=== PATIENT | male | born 1960 | race Caucasian/White ===

== ENCOUNTER 2017-07-19 13:26 | Emergency (ER) | payer OTHER ==
[2017-07-19] MEDS ORDERED: LIDOCAINE 1% INJ-PF (10 MG/ML) 30 ML SDV INJ ONE (13:44)
--- NOTE | 2017-07-19 13:45 | ER Document Report ---
ED Extremity Problem, Lower - General Mode of Arrival: Ambulatory Information source: Patient TRAVEL OUTSIDE OF THE [place] IN LAST 30 DAYS: No <ALEM MEZA - Last Filed: 07/19/17 16:19> <CHENCHO BARRETT - Last Filed: 07/19/17 16:46> - General Chief Complaint: Leg Swelling Stated Complaint: SWOLLEN RT LEG Time Seen by Provider: 07/19/17 13:34 Notes: Patient is a 57 year old male that presents to the emergency department today with complaints of right knee pain. Patient states she has had pain in his right knee for approximately 2 or 3 days. Patient states there is a "lump" with "a sore" on his right knee. Patient was seen by his PCP yesterday who sent him to get an xray but did not do anything further. (ALEM MEZA) - Related Data Allergies/Adverse Reactions: No Known Allergies Allergy (Unverified 04/14/13 23:33) Past Medical History - General Information source: Patient - Social History Smoking Status: Never Smoker Cigarette use (# per day): No Chew tobacco use (# tins/day): No Frequency of alcohol use: Occasional Drug Abuse: None Lives with: Family Family History: Arthritis, CAD, CVA, DM, Hyperlipidemia, Hypertension, Malignancy Musculoskeltal Medical History: Reports Hx Arthritis, Reports Hx Musculoskeletal Trauma Skin Medical History: Reports Hx MRSA - MRSA 08/09 BUTTOCKS 12/09 SCROTUM Traumatic Medical History: Reports: Hx Fractures - multiple toes left leg collar bone Past Surgical History: Reports: Hx Cholecystectomy - Immunizations Immunizations up to date: Yes Hx Diphtheria, Pertussis, Tetanus Vaccination: Yes <ALEM MEZA - Last Filed: 07/19/17 16:19> Review of Systems - Review of Systems Constitutional: No symptoms reported EENT: No symptoms reported Cardiovascular: No symptoms reported Respiratory: No symptoms reported Gastrointestinal: No symptoms reported Genitourinary: No symptoms reported Male Genitourinary: No symptoms reported Musculoskeletal: See HPI, Joint pain - right knee pain Skin: See HPI, Lesions - right knee Hematologic/Lymphatic: No symptoms reported Neurological/Psychological: No symptoms reported -: Yes All other systems reviewed and negative <ALEM MEZA - Last Filed: 07/19/17 16:19> Physical Exam <ALEM MEZA - Last Filed: 07/19/17 16:19> - Extremities General lower extremity: Other - The right leg is somewhat swollen and some erythema. Just below the patella on the right there is a large firm bulging area with erythema and some skin peeling and crusting. This is consistent with an abscess. There is no tenderness to palpate the knee itself, and there is no effusion. <CHENCHO BARRETT - Last Filed: 07/19/17 16:46> - Vital signs Vitals: Temp Pulse Resp BP Pulse Ox 98.8 F 76 18 106/57 L 95 07/19/17 13:37 07/19/17 13:37 07/19/17 13:37 07/19/17 13:37 07/19/17 13:37 - Notes Notes: Physical Exam: General: Alert, appears uncomfortable. HEENT: Normocephalic. Atraumatic. PERRL. Extraocular movements intact. Oropharynx clear. Neck: Supple. Non-tender. Respiratory: No respiratory distress. Clear and equal breath sounds bilaterally. Cardiovascular: Regular rate and rhythm. Abdominal: Normal Inspection. Non-tender. No distension. Normal Bowel Sounds. Back: Non-tender. No deformity or step off. Extremities: Upper extremities: Normal inspection. Normal ROM. Lower extremities: see knee exam Neurological: Normal cognition. AAOx4. Normal speech. Psychological: Normal affect. Normal Mood. Skin: Warm. Dry. Normal color. (ALEM MEZA) Course <ALEM MEZA - Last Filed: 07/19/17 16:19> <CHENCHO BARRETT - Last Filed: 07/19/17 16:46> - Re-evaluation Re-evalutation: 07/19/17 16:43 PROCEEDURE: The right anterior infrapatellar region was cleaned with Hibiclens. The abscess area was anesthetized with 5 mL's of 1% lidocaine. A transverse incision was made with a #11 blade. The wound was spread with a mosquito clamp. At least 7-8 mL's of yellow pus came out of the abscess cavity. The pus was cultured and sent to the lab. The abscess cavity was copiously irrigated with 30 mL's of normal saline. The abscess cavity was then packed with quarter-inch iodoform gauze. A sterile absorbent gauze dressing was applied to the wound. (CHENCHO BARRETT) - Vital Signs Vital signs: Temp Pulse Resp BP Pulse Ox 98.7 F 71 17 105/61 93 07/19/17 16:04 07/19/17 16:04 07/19/17 16:04 07/19/17 16:04 07/19/17 16:04 Discharge <ALEM MEZA - Last Filed: 07/19/17 16:19> <CHENCHO BARRETT - Last Filed: 07/19/17 16:46> - Discharge Clinical Impression: Infrapatellar abscess, Incision and drainage of abscess Condition: Stable Disposition: HOME, SELF-CARE Additional Instructions: Add the cephalexin as prescribed. Increase your Bactrim to 2 pills twice daily. Elevate your foot above your heart all the time. Follow-up with [facility] tomorrow--call for an appointment. Prescriptions: Cephalexin Monohydrate [Keflex 500 mg Capsule] 500 mg PO QID #28 capsule Oxycodone HCl/Acetaminophen [Percocet 5-325 mg Tablet] 1 - 2 tab PO ASDIR PRN # 15 tablet PRN Reason: Forms: Return to Work Referrals: [facility] [Provider Group] - Follow up tomorrow Scribe Attestation: 07/19/17 15:33 I personally performed the services described in the documentation, reviewed and edited the documentation which was dictated to the scribe in my presence, and it accurately records my words and actions. (CHENCHO BARRETT) Scribe Documentation - Scribe Written by Juice:: Juice Casper, 07/19/2017 1400 acting as scribe for :: Esperanza <ALEM MEZA - Last Filed: 07/19/17 16:19>
[2017-07-19] MEDS ORDERED: SULFAMETHOXAZOLE/TRIMETHOPRIM 800-160 MG TABLET PO ONE (14:59)
[2017-07-19] MEDS ORDERED: CEPHALEXIN 500 MG CAPSULE PO ONE (14:59)
[2017-07-19] MEDS ORDERED: OXYCODONE-ACETAMINOPHEN 5-325 MG TABLET PO ONE (15:00)
[2017-07-19 16:27] VITALS: BP 105/61
== END 2017-07-19 16:15 | disposition home or self-care (01) ==
LOC: ER 13:26
PROC: 0H9KXZZ Drainage of Right Lower Leg Skin, External Approach (ICD-10-PCS; principal; 2017-07-19)
DX: L02.415 Cutaneous abscess of right lower limb (principal); M79.89 Other specified soft tissue disorders; M25.561 Pain in right knee
CPT/HCPCS: 99283; 87070; 87075; 87077; 87186; 10061; J3490; 87205; A6266

== ENCOUNTER 2017-07-20 11:32 | Inpatient (IN) | payer OTHER ==
--- NOTE | 2017-07-20 11:41 | PDOC H&P ---
History of Present Illness Admission Date/PCP: 07/20/17 11:32 SHAWNEE TRUJILLO MD History of Present Illness: TALIA MASSEY is a 57 year old male who presented to the office with complaints of right lower extremity pain. He reports a spontaneous onset of right lower extremity swelling erythema and tenderness. He was evaluated in the emergency room yesterday. He underwent I&D of the knee. He was started on oral antibiotics. He returns to the office today with progressive symptoms. The patient reports a past medical history of 2 specific MRSA infection is treated in the past. Past Medical History Cardiac Medical History: Reports: None Pulmonary Medical History: Reports: None Musculoskeltal Medical History: Reports: Arthritis Past Surgical History Past Surgical History: Reports: Cholecystectomy Social History Information Source: Patient, [facility] Records Smoking Status: Smoker,Current Status Unk Family History Family History: Arthritis, CAD, CVA, DM, Hyperlipidemia, Hypertension, Malignancy Parental Family History Reviewed: No Children Family History Reviewed: No Sibling(s) Family History Reviewed.: No Medication/Allergy Home Medications: Clonazepam [Klonopin 2 mg Tablet] 2 mg PO 04/14/13 Dextroamphetamine/Amphetamine [Adderall XR 20 mg Capsule] 3 cap.sr PO DAILY Donepezil HCl [Aricept] 10 mg PO 04/14/13 Escitalopram Oxalate [Lexapro] 40 mg PO 04/14/13 Fenofibrate [Lofibra] 160 mg PO 04/14/13 Lamotrigine 400 mg PO 04/14/13 Modafinil 200 mg PO 04/14/13 Trazodone HCl [Desyrel] 300 mg PO 04/14/13 Zolpidem Tartrate 10 mg PO 04/14/13 Cephalexin Monohydrate [Keflex 500 mg Capsule] 500 mg PO QID #28 capsule Oxycodone HCl/Acetaminophen [Percocet 5-325 mg Tablet] 1 - 2 tab PO ASDIR PRN # 15 tablet 07/19/17 Allergies/Adverse Reactions: No Known Allergies Allergy (Unverified 04/14/13 23:33) Review of Systems All systems: as per [facility] Physical Exam Physical Exam: The patient is a relatively thin middle-aged white male who arrives at the office in a wheelchair. He is accompanied by her friend. The right lower extremity is wrapped in a Coban dressing. This is removed. There is a small transverse incision overlying the tibial tubercle. This is filled with packing. The packing is removed. There is no significant amount of exudate present. There is a surrounding erythema and tenderness to palpation. The swelling erythema and tenderness extending down the calf to the distal third. Passive range of motion of the knee is without significant discomfort. There is no inguinal adenopathy. General appearance: PRESENT: mild distress Head exam: PRESENT: normocephalic Eye exam: PRESENT: EOMI Respiratory exam: PRESENT: unlabored Cardiovascular exam: PRESENT: RRR Pulses: PRESENT: +1 pedal pulses bilateral Vascular exam: PRESENT: normal capillary refill GI/Abdominal exam: PRESENT: soft Rectal exam: PRESENT: deferred Extremities exam: PRESENT: other - Exam is as above. Neurological exam: PRESENT: alert, awake, oriented to person, oriented to place , oriented to time, oriented to situation, other - Patient's factual recall of details is not accurate. The patient reports that he had the I&D done in Dr. Barrios's office. In fact it was done in the emergency room at [place].. ABSENT: motor sensory deficit Psychiatric exam: PRESENT: appropriate affect, normal mood. ABSENT: homicidal ideation, suicidal ideation Skin exam: PRESENT: dry, intact, warm. ABSENT: cyanosis, rash Results Status: Imported from PACS Assessment & Plan - Diagnosis (1) Cellulitis of right lower extremity Is this a current diagnosis for this admission?: Yes Plan: 57-year-old white male with past medical history significant for MRSA infections now with a right lower extremity infection that began spontaneously without any penetrating trauma. The patient is undergone a limited I&D in the emergency room and this appears to have decompressed what was probably an abscess. The microbiology evaluation of that exudates is still pending. However the patient was sent out on Keflex as an oral antibiotic and his symptoms have progressed since that time suggesting that this was not adequate coverage. In light of the past medical history with MRSA infections and the current progressive symptoms on oral first generation cephalosporin, I think that the patient probably should be admitted for IV antibiotic therapy and probably should have an MRI scan to exclude the possibility of a pyarthrosis. - Time Time Spent: 50 to 70 Minutes Anticipated discharge: Home with Homehealth Within: Other
[2017-07-20] MEDS ORDERED: ACETAMINOPHEN 325 MG TABLET PO PRN (12:22)
[2017-07-20] MEDS ORDERED: ONDANSETRON 4 MG TAB.RAPDIS SL PRN (12:22)
[2017-07-20] MEDS ORDERED: RINGERS SOLUTION,LACTATED 1,000 ML IV PRN (12:23)
[2017-07-20] MEDS ORDERED: RIFAMPIN 300 MG CAPSULE PO ONE (13:00)
[2017-07-20 13:42] LABS: ABSOLUTE EOSINOPHILS # (AUTO) 0.1 10^3/uL (0.0-0.6); ABSOLUTE LYMPHOCYTES (AUTO) 1.7 10^3/uL (0.5-4.7); ABSOLUTE MONOCYTES (AUTO) 0.5 10^3/uL (0.1-1.4); ABSOLUTE NEUT (AUTO) 7.2 10^3/uL (1.7-8.2); BASOPHILS % (AUTO) 0.3 % (0-2); EOSINOPHILS % (AUTO) 1.4 % (0-6); HEMATOCRIT 36.2 % (37.9-51.0); HEMOGLOBIN 12.9 g/dL (13.5-17.0); HGB HCT DIFFERENCE 2.5; MEAN CORPUSCULAR HEMOGLOBIN 33.8 pg (27.0-33.4); MEAN CORPUSCULAR HGB CONC 35.7 g/dL (32.0-36.0); MEAN CORPUSCULAR VOLUME 95 fl (80-97); MONOCYTES % (AUTO) 5.6 % (3-13); RED BLOOD COUNT 3.83 10^6/uL (4.35-5.55); RED CELL DISTRIBUTION WIDTH 13.3 % (11.5-14.0); SEGMENTED NEUTROPHILS % (AUTO) 74.7 % (42-78); WHITE BLOOD COUNT 9.6 10^3/uL (4.0-10.5)
[2017-07-20 14:06] LABS: ANION GAP 14 (5-19); BLOOD UREA NITROGEN 12 mg/dL (7-20); CALCIUM 9.1 mg/dL (8.4-10.2); CARBON DIOXIDE 26 mmol/L (22-30); CHLORIDE 102 mmol/L (98-107); CREATININE RESULT 0.84 mg/dL (0.52-1.25); GLUCOSE 106 mg/dL (75-110); POTASSIUM 4.2 mmol/L (3.6-5.0); SODIUM 141.6 mmol/L (137-145)
[2017-07-20 14:24] LABS: ERYTHROCYTE SEDIMENTATION RATE 95 mm/hr (0-20)
[2017-07-20 14:31] LABS: C-REACTIVE PROTEIN 189.3 mg/L (<10.0)
[2017-07-20] MEDS ORDERED: VANCOMYCIN HCL 1,000 MG in DEXTROSE 5%-WATER 250 ML IV SCH (15:00)
--- NOTE | 2017-07-20 15:36 | RADIOLOGY REPORT (SQ) ---
EXAM DESCRIPTION: MRI RT LOWER EXTREMITY WITHOUT COMPLETED DATE/TIME: 07/20/2017 3:14 pm REASON FOR STUDY: RLE CELLULITIS COMPARISON: None. TECHNIQUE: Rightknee images acquired and stored on PACS. Multiplanar images include fat sensitive s equences as T1, water sensitive sequences as FST2 or STIR, cartilage sensitive sequences as FSPD, and gradient echo sequences. LIMITATIONS: None. FINDINGS: There is diffuse superficial cellulitis in the distal thigh, knee soft tissues, and upper calf. Skin thickening and subcutaneous edema is present. In the pretibial soft tissues, a fluid collection with air bubbles is present worrisome for abscess, 3.5 cm transverse by 0.7 cm AP x 2.5 cm craniocaudad. This is best shown on axial image 17-22, and s agittal image 16. There is fluid between the patellar tendon and Hoffa's fat pad, 2.7 cm transverse by 0.7 cm AP x 2.6 cm craniocaudad. There is abnormal edema in the anterior superior edge of the tibialis anterior muscle on axial images 20-24, worrisome for myositis. No suprapatellar knee joint effusion is seen. BONE CORTEX AND MARROW: No alteration of signal to suggest marrow replacement. No worrisome bone lesi ons. No occult fracture. ACL: Intact. No degeneration or ganglion cyst. PCL: Intact. MCL: Intact. No periligamentous edema or fluid. LCL: Intact. No periligamentous edema or fluid. MEDIAL MENISCUS: No tears. No abnormal signal. LATERAL MENISCUS: No tears. No abnormal signal. MEDIAL COMPARTMENT: Cartilage preserved. No bone bruises or reactive marrow edema. No osteophytes. LATERAL COMPARTMENT: Cartilage preserved. No bone bruises or reactive marrow edema. No osteophytes. PATELLA: No chondromalacia. No subchondral cysts. Medial and lateral retinacula intact. EXTENSOR MECHANISM: Intact. Quadriceps and patella tendons normal. SOFT TISSUES: As above OTHER: No other significant finding. IMPRESSION: Cellulitis with skin thickening and subcutaneous edema. Abscess pretibial soft tissues with air bubbles present Fluid tracking between the dorsal aspect of the patellar tendon Hoffa's fat pad worrisome for infecti on. TECHNICAL DOCUMENTATION: JOB ID: [id number]- All Rights Reserved
[2017-07-20] MEDS: OXYCODONE HCL IR 5 MG TABLET PO PRN ×2 (15:48→23:11)
[2017-07-20] MEDS: VANCOMYCIN HCL 1,000 MG in DEXTROSE 5%-WATER 250 ML IV SCH (17:17)
[2017-07-20] MEDS: RIFAMPIN 300 MG CAPSULE PO SCH (23:10)
[2017-07-20] MEDS: RIVAROXABAN 10 MG TABLET PO SCH (23:11)
[2017-07-21] MEDS: VANCOMYCIN HCL 1,000 MG in DEXTROSE 5%-WATER 250 ML IV SCH ×3 (01:56→17:18)
--- NOTE | 2017-07-21 07:13 | PDOC PROGRESS REPORT ---
Subjective Progress Note for:: 07/21/17 Subjective:: 57-year-old white male with right lower extremity pain and history of incision and drainage of the left knee in the emergency department yesterday. Patient states he is relatively comfortable however does not feel that he has had much change in the pain in his right knee. Physical Exam Vital Signs: Temp Pulse Resp BP Pulse Ox 37.6 C 70 15 107/47 L 95 07/21/17 00:00 07/21/17 00:00 07/21/17 00:00 07/21/17 00:00 07/21/17 00:00 Intake & Output 07/19/17 07/20/17 07/21/17 06:59 06:59 06:59 Intake Total 1140 Balance 1140 Weight 85.275 kg General appearance: PRESENT: no acute distress, well-developed, well-nourished Head exam: PRESENT: atraumatic, normocephalic Pulses: PRESENT: normal dorsalis pedis pul, +2 pedal pulses bilateral Vascular exam: PRESENT: normal capillary refill Additional comments: Patient's right lower extremity is in full extension with patient lying recumbent in hospital bed. He is Anant dressing is removed to reveal a small area of erythema and dried zack blood in the anterior surface of the right knee. There is a small incision appreciated on the anterior joint line from his I&D yesterday. There is a small collection of purulent material within the incision however, it appears to be healing appropriately. Patient maintains full range of motion of the right knee including flexion extension and hyperextension with minimal pain. His incision wound is redressed with a single Band-Aid. His sensory motor functions are intact, his distal neurovascular exam is intact. Neurological exam: PRESENT: alert, awake, oriented to person, oriented to place , oriented to time, oriented to situation, CN II-XII grossly intact. ABSENT: motor sensory deficit Psychiatric exam: PRESENT: appropriate affect, normal mood. ABSENT: homicidal ideation, suicidal ideation Skin exam: PRESENT: dry, intact, warm. ABSENT: cyanosis, rash Additional comments: See detials noted in extremities exam for focused skin exam of the right knee. Results Laboratory Results: 07/20/17 13:21 07/20/17 13:21 07/20/17 07/20/17 13:21 13:21 WBC 9.6 RBC 3.83 L Hgb 12.9 L Hct 36.2 L MCV 95 MCH 33.8 H MCHC 35.7 RDW 13.3 Plt Count 184 Seg Neutrophils % 74.7 Lymphocytes % 18.0 Monocytes % 5.6 Eosinophils % 1.4 Basophils % 0.3 Absolute Neutrophils 7.2 Absolute Lymphocytes 1.7 Absolute Monocytes 0.5 Absolute Eosinophils 0.1 Absolute Basophils 0.0 Sodium 141.6 Potassium 4.2 Chloride 102 Carbon Dioxide 26 Anion Gap 14 BUN 12 Creatinine 0.84 Est GFR ( Amer) > 60 Est GFR (Non-Af Amer) > 60 Glucose 106 Calcium 9.1 C-Reactive Protein 189.3 H Impressions: Lower Extremity MRI 07/20/17 00:00 IMPRESSION: Cellulitis with skin thickening and subcutaneous edema. Abscess pretibial soft tissues with air bubbles present Fluid tracking between the dorsal aspect of the patellar tendon Hoffa's fat pad worrisome for infection. Assessment & Plan - Diagnosis (1) Cellulitis of right lower extremity Is this a current diagnosis for this admission?: Yes - Plan Summary Plan Summary: 57-year-old white male with with history of 2 MRSA positive infections in the past, with right knee cellulitis. MRI imaging of the right knee indicates no evidence of poly-arthrosis, however the skin was positive for right lower extremity edema. Therefore he is not a candidate for surgical joint washout or debridement at this time. Cultures from exudate of the right knee reveal gram- positive cocci in clusters. Based on these findings patient will be placed on IV Vancomycin and rifampin to address the infection. His IV antibiotics will be initiated here in the hospital and he will likely be discharged to a rehab facility where he can continue to receive IV antibiotics. We will plan for discharge later next week.
[2017-07-21] MEDS: OXYCODONE HCL IR 5 MG TABLET PO PRN ×2 (07:37→21:25)
[2017-07-21] MEDS: RIFAMPIN 300 MG CAPSULE PO SCH ×2 (10:22→21:25)
[2017-07-21] MEDS: RIVAROXABAN 10 MG TABLET PO SCH (21:25)
[2017-07-22] MEDS: VANCOMYCIN HCL 1,000 MG in DEXTROSE 5%-WATER 250 ML IV SCH ×2 (01:20→09:27)
[2017-07-22 08:10] VITALS: BP 115/64
--- NOTE | 2017-07-22 08:40 | PDOC DISCHARGE SUMMARY ---
General - Admit/Disc Date/PCP Admission Date/Primary Care Provider: 07/20/17 11:32 SHAWNEE TRUJILLO MD Discharge Date: 07/22/17 - Discharge Diagnosis (1) Cellulitis of right lower extremity Is this a current diagnosis for this admission?: Yes - Additional Information Discharge Diet: As Tolerated, Regular Discharge Activity: Activity As Tolerated Home Medications: Bupropion HCl [Wellbutrin Xl 150 mg 24hr Tablet] 150 mg PO QAM 07/20/17 Clonazepam [Klonopin 2 mg Tablet] 1 mg PO Q12 MDD 2 TABS PER DAY 07/20/17 Dextroamphetamine/Amphetamine [Dextroamp-Amphet ER 20 mg Cap] 40 mg PO QAM 07/20 Lamotrigine [Lamictal] 400 mg PO DAILY 07/20/17 Multivitamin [Tab-A-Gil (Multiple Vitamin) Tablet] 1 tab PO DAILY 07/20/17 Sulfamethoxazole/Trimethoprim [Bactrim Ds Tablet] 1 tab PO Q12 MDD FILLED FOR 10DAYS 07/20/17 Trazodone HCl [Desyrel] 150 mg PO QHS 07/20/17 Vortioxetine Hydrobromide [Trintellix] 10 mg PO DAILY 07/20/17 Zolpidem Tartrate [Ambien 5 mg Tablet] 10 mg PO HSP PRN 07/20/17 Acetaminophen [Tylenol 325 mg Tablet] 650 mg PO Q6HP PRN tablet 07/22/17 Rifampin [Rifadin 300 mg Capsule] 300 mg PO Q12 capsule 07/22/17 History of Present Illness History of Present Illness: The patient is a 57-year-old white male who initially presented to the emergency room with swelling tenderness and erythema over the right prepatellar region. He underwent an I&D and packing in the emergency room. He presented to the office with increased pain swelling and induration. He is admitted for intravenous antibiotic therapy Hospital Course Hospital Course: Patient is admitted and started on IV vancomycin with rifampin. Sedimentation rate and C-reactive protein are both significantly elevated. Over the course of 36 hours the patient's swelling induration tenderness and limited functional level all improved. Physical Exam Vital Signs: Temp Pulse Resp BP Pulse Ox 36.4 C 53 L 16 115/64 100 07/22/17 08:04 07/22/17 08:04 07/22/17 08:04 07/22/17 08:04 07/22/17 08:04 Intake & Output 07/21/17 07/22/17 07/23/17 06:59 06:59 06:59 Intake Total 1140 5420 Output Total 0 Balance 1140 5420 Weight 85.275 kg General appearance: PRESENT: no acute distress Head exam: PRESENT: normocephalic Respiratory exam: PRESENT: unlabored Cardiovascular exam: PRESENT: RRR Pulses: PRESENT: +1 pedal pulses bilateral Vascular exam: PRESENT: normal capillary refill GI/Abdominal exam: PRESENT: soft Rectal exam: PRESENT: deferred Extremities exam: PRESENT: other - Erythema and induration and tenderness over the right lower extremity are significantly improved. Band-Aid in place without any significant drainage. Neurological exam: PRESENT: alert, awake, oriented to person, oriented to place , oriented to time, oriented to situation. ABSENT: motor sensory deficit Psychiatric exam: PRESENT: appropriate affect, normal mood. ABSENT: homicidal ideation, suicidal ideation Skin exam: PRESENT: dry, intact, warm. ABSENT: cyanosis, rash Results Laboratory Results: 07/20/17 13:21 07/20/17 13:21 Impressions: Lower Extremity MRI 07/20/17 00:00 IMPRESSION: Cellulitis with skin thickening and subcutaneous edema. Abscess pretibial soft tissues with air bubbles present Fluid tracking between the dorsal aspect of the patellar tendon Hoffa's fat pad worrisome for infection. Status: Imported from PACS Plan Discharge Plan: Cultures ultimately grew a pansensitive staph aureus. Patient will be discharged on oral Septra and rifampin. Follow-up will be with Dr. Morales in the [facility] for surgery on Monday for wound reevaluation
[2017-07-22] MEDS: RIFAMPIN 300 MG CAPSULE PO SCH (09:26)
[2017-07-22] MEDS ORDERED: SULFAMETHOXAZOLE/TRIMETHOPRIM 800-160 MG TABLET PO SCH (11:00)
== END 2017-07-22 11:46 | disposition home or self-care (01) | DRG 603 ==
LOC: 4S 11:32
PROVIDERS: ADMIT Orthopaedic Surgery; ATTEND Orthopaedic Surgery
DX: L03.115 Cellulitis of right lower limb (principal); B95.61 Methicillin susceptible Staphylococcus aureus infection as the cause of diseases classified elsewhere; M19.90 Unspecified osteoarthritis, unspecified site; Z86.14 Personal history of Methicillin resistant Staphylococcus aureus infection; Z90.49 Acquired absence of other specified parts of digestive tract; Z82.49 Family history of ischemic heart disease and other diseases of the circulatory system; Z86.73 Personal history of transient ischemic attack (TIA), and cerebral infarction without residual deficits; Z83.3 Family history of diabetes mellitus; Z82.61 Family history of arthritis; Z80.9 Family history of malignant neoplasm, unspecified
CPT/HCPCS: 36415; 80048; 85025; 85652; 86140; J3370; J3490; J7060

== ENCOUNTER 2018-07-23 07:26 | Day surgery (SDC) | payer OTHER ==
[~2018-07-23 07:26] MED LIST: PROPOFOL INJ 200 MG/20 ML VIAL IV ONE
[2018-07-23 09:36] VITALS: BP 113/70
--- NOTE | 2018-07-23 12:50 | Operative Report ---
Operative Report DATE OF SURGERY: 07/23/18 Operative Report: The risks, benefits and alternatives of the procedure the risk of bleeding, perforation requiring surgery are explained to the patient in detail and informed consent was obtained. Patient is taken back to the endoscopy suite and placed in the left, lateral decubital position. Timeout was called. Propofol medication is administered. A rectal examination is done which did not reveal any masses, tears or fissures. An Olympus videoscope was inserted into the patient's rectum. The scope was then carefully advanced all the way to the cecum. The cecum was identified by the usual anatomical landmarks including the ileocecal valve as well as the appendiceal office. Photodocumentation is obtained. The scope was then sequentially pulled back via the various segments of the colon including the ascending colon, hepatic flexure, transverse colon, splenic flexure, descending colon and finally to the rectosigmoid portions of the colon. Retroflexion maneuvers performed. PREOPERATIVE DIAGNOSIS: Personal history of polyp POSTOPERATIVE DIAGNOSIS: Possible small polypoid lesion noted on the right side of the colon status post biopsy for removal rule out lymphocytic, microscopic, collagenous colitis. There is a mild area of inflammation in the area OPERATION: Colonoscopy with biopsy SURGEON: RODRIGO BELLAMY ANESTHESIA: LMAC TISSUE REMOVED OR ALTERED: As noted above. COMPLICATIONS: None. ESTIMATED BLOOD LOSS: None. INTRAOPERATIVE FINDINGS: As noted above. PROCEDURE: Patient tolerated procedure well. No immediate postprocedure complications are noted. Patient discharged in good condition. Discharge date 07/24/2018 Discharge diet: Regular. Discharge activity: Regular. 2-3-week follow-up to discuss findings. Patient is instructed to call the office or proceed to the emergency room should there be any further problems or questions. Wait on the pathology.
== END 2018-07-23 09:30 | disposition home or self-care (01) ==
LOC: END 07:26
PROVIDERS: ATTEND Internal Medicine Gastroenterology
DX: K52.9 Noninfective gastroenteritis and colitis, unspecified (principal); Z86.010 Personal history of colon polyps; E78.5 Hyperlipidemia, unspecified; E11.9 Type 2 diabetes mellitus without complications; G43.909 Migraine, unspecified, not intractable, without status migrainosus; E78.2 Mixed hyperlipidemia
CPT/HCPCS: 45380; 88305 ×2; J2704; 811